=== PATIENT | male | born 1945 | race Caucasian/White ===

== ENCOUNTER 2018-08-28 11:26 | Inpatient (IN) ==
[2018-08-28] MEDS ORDERED: HYDROmorphone 2 MG/1 ML VIAL ONE (12:26)
[2018-08-28] MEDS ORDERED: ONDANSETRON 4 MG/2 ML VIAL ONE (12:26)
[2018-08-28] MEDS ORDERED: HYDROmorphone 2 MG/1 ML VIAL IV STA (12:28)
[2018-08-28] MEDS ORDERED: ONDANSETRON 4 MG/2 ML VIAL IV STA (12:28)
[2018-08-28 12:29] LABS: Basophils % 0.2 % (0.0-0.8); Eosinophils % 0.1 % (0.00-10.9); Hematocrit 38.8 VOL% (42.0-52.0); Hemoglobin 12.9 GM/DL (14.0-18.0); Immature Granulocytes % 0.5 %; Immature Granulocytes Absolute 0.07 #; Lymphocytes # 0.7 10*3/uL (1.4-4.0); Lymphocytes % 4.8 % (21.2-54.2); Mean Corpuscular HGB Conc 33.2 GM/DL (32-36); Mean Corpuscular Hemoglobin 36 PG (27-34); Mean Corpuscular Volume 108.4 FL (87-102); Mean Platelet Volume 9.4 FL (9.6-12.0); Monocytes # 1.1 10*3/uL (0.11-0.8); Monocytes % 7.8 % (1.7-12.7); Neutrophils # 11.6 10*3/uL (1.4-7.4); Neutrophils % 86.6 % (38.7-73.9); Platelet Count 228 T/CUMM (130-400); Red Blood Count 3.58 MC/CUMM (3.8-5.5); White Blood Count 13.5 T/CUMM (4-12)
[2018-08-28] MEDS ORDERED: ONDANSETRON 4 MG/2 ML VIAL IV PRN (12:34)
[2018-08-28] MEDS ORDERED: guaiFENesin/DM ER 600-30 MG TABLET PO PRN (12:34)
[2018-08-28] MEDS ORDERED: ACETAMINOPHEN 325 MG TABLET PO PRN (12:34)
[2018-08-28 12:39] LABS: Apearance,Urine CLOUDY (Clear); Bacteria,Urine Many /HPF (Few); Bilirubin,Urine Negative (Negative); Blood, Urine Small mg/dL (Negative); Glucose,Urine (UA) Negative (Negative); Ketones,Urine 5 mg/dL (Negative); Mucus,Urine Occasional /LPF (Occasional); Nitrite,Urine Negative (Negative); Protein,Urine 100 MG/DL; Urine Color Amber (Yellow); Urine Urobilinogen < 2.0 EU/DL (0.2-1.0); WBC,Urine 565 /HPF (0-6)
[2018-08-28 12:41] LABS: PT Patient Result 10.6 SECS; Partial Thromboplastin Time 24.3 SECS (0-40)
[2018-08-28 12:46] LABS: Albumin 3.7 G/DL (3.4-5.0); Bilirubin,Total 0.8 MG/DL (0.2-1.0); Calcium 8.9 MG/DL (8.5-10.1); Osmolality,Calculated 281.5 MOS/KG (273-304); Potassium 4.2 MMOL/L (3.5-5.1)
[2018-08-28 13:26] LABS: Band Neutrophils 1 % (0-10); Lymphocytes 5 % (20-55); Macrocytosis 1+; Platelet Estimate Normal; Segmented Neutrophils 86 % (50-85); Total Cells Counted 100
[2018-08-28] MEDS ORDERED: SODIUM CHLORIDE 0.9% 1,000 ML IV ONE (14:07)
[2018-08-28] MEDS: PANTOPRAZOLE 40 MG TABLET PO SCH (14:15)
[2018-08-28] MEDS: cefTRIAXone 1,000 MG in SYRINGE 1 EACH IV SCH (14:28)
[2018-08-28] MEDS: SODIUM CHLORIDE 0.9% 1,000 ML IV SCH (15:08)
[2018-08-28] MEDS: ZALEPLON 5 MG CAPSULE PO PRN (20:30)
[2018-08-29] MEDS: diphenhydrAMINE CAP 25 MG CAPSULE PO PRN
[2018-08-29 04:47] LABS: Basophils % 0.3 % (0.0-0.8); Eosinophils % 0.5 % (0.00-10.9); Hematocrit 30.4 VOL% (42.0-52.0); Immature Granulocytes % 0.6 %; Immature Granulocytes Absolute 0.05 #; Lymphocytes # 1.2 10*3/uL (1.4-4.0); Lymphocytes % 15.5 % (21.2-54.2); Mean Corpuscular HGB Conc 32.9 GM/DL (32-36); Mean Corpuscular Hemoglobin 36 PG (27-34); Mean Corpuscular Volume 109.7 FL (87-102); Mean Platelet Volume 9.5 FL (9.6-12.0); Neutrophils # 5.4 10*3/uL (1.4-7.4); Neutrophils % 70.1 % (38.7-73.9); Platelet Count 187 T/CUMM (130-400); Red Cell Distribution Width 13.2 % (9.3-17.3)
[2018-08-29] MEDS: MORPHINE 4 MG/1 ML VIAL IV PRN ×3 (05:01→08:06)
[2018-08-29 05:13] LABS: Calcium 7.7 MG/DL (8.5-10.1); Osmolality,Calculated 286.1 MOS/KG (273-304); Potassium 4.5 MMOL/L (3.5-5.1); Risk Ratio 2.3; Thyroid Stimulating Hormone 1.13 uIU/ml (0.358-3.74); VLDL CHOLESTEROL 15.4 MG/DL
[2018-08-29 05:33] LABS: Red Blood Count 2.77 MC/CUMM (3.8-5.5); White Blood Count 7.7 T/CUMM (4-12)
[2018-08-29] MEDS ORDERED: ceFAZolin 1,000 MG in SYRINGE 1 EACH IV ONE (06:00)
[2018-08-29] MEDS ORDERED: DIAZEPAM 5 MG TABLET ONE (08:23)
[2018-08-29] MEDS ORDERED: PANTOPRAZOLE 40 MG VIAL IV ONE ×2 (08:23→08:30)
[2018-08-29] MEDS ORDERED: DIAZEPAM 5 MG TABLET PO ONE (08:30)
[2018-08-29] MEDS ORDERED: BACITRACIN OINT 0.9 GM PACK TOP ONE (09:08)
[2018-08-29] MEDS: BISACODYL 5 MG TABLET PO SCH (10:11)
[2018-08-29] MEDS: PANTOPRAZOLE 40 MG TABLET PO SCH (10:12)
[2018-08-29] MEDS ORDERED: MAGNESIUM HYDROXIDE SUSP 30 ML UDCUP PO PRN (10:21)
[2018-08-29] MEDS ORDERED: TRANEXAMIC ACID 1,000 MG/10 ML VIAL ONE (10:42)
[2018-08-29] MEDS ORDERED: ROPIVACAINE 0.5% 30 ML VIAL ONE (11:23)
[2018-08-29] MEDS ORDERED: EPINEPHrine 1 MG/ML VIAL ONE (11:27)
[2018-08-29] MEDS ORDERED: BUPIVACAINE 0.5% 50 ML VIAL ONE (11:27)
[2018-08-29 11:34] LABS: Apearance,Urine CLEAR (Clear); Bilirubin,Urine Negative (Negative); Blood, Urine Moderate mg/dL (Negative); Glucose,Urine (UA) Negative (Negative); Ketones,Urine Negative (Negative); Nitrite,Urine Negative (Negative); Protein,Urine Negative; RBC,Urine 5 /HPF (0-4); Squamous Epithelial Cell,Urine Occasional /HPF (0-10); Urine Color Straw (Yellow); Urine Urobilinogen < 2.0 EU/DL (0.2-1.0); WBC,Urine 14 /HPF (0-6)
[2018-08-29] MEDS ORDERED: PHENYLEPHRINE 10 MG/1 ML VIAL IV ONE (11:34)
[2018-08-29] MEDS ORDERED: KETAMINE 500 MG/10 ML VIAL ONE (11:34)
[2018-08-29] MEDS ORDERED: SODIUM CHLORIDE 0.9% 250 ML IV ONE (11:35)
[2018-08-29] MEDS ORDERED: PHENYLEPHRINE 1 MG/10 ML SYRINGE IV ONE (11:35)
[2018-08-29] MEDS ORDERED: ACETAMINOPHEN 1,000 MG/100 ML VIAL IV ONE (11:35)
[2018-08-29] MEDS ORDERED: SODIUM CHLORIDE 0.9% 100 ML IV ONE (11:35)
[2018-08-29] MEDS ORDERED: PROPOFOL 200 MG/20 ML VIAL IV ONE (11:35)
[2018-08-29] MEDS: KETOROLAC 15 MG/1 ML VIAL IV SCH ×3 (12:56→23:01)
[2018-08-29] MEDS ORDERED: SODIUM CHLORIDE 0.9% 1,000 ML IV ONE (12:57)
[2018-08-29] MEDS: LACTATED RINGERS 1,000 ML IV SCH ×2 (12:57→20:35)
[2018-08-29] MEDS: ACETAMINOPHEN 500 MG TABLET PO SCH ×2 (16:01→20:36)
[2018-08-29] MEDS: ceFAZolin 1,000 MG in SYRINGE 1 EACH IV SCH ×2 (16:38→23:02)
[2018-08-29] MEDS: cefTRIAXone 1,000 MG in SYRINGE 1 EACH IV SCH (16:39)
[2018-08-29] MEDS: DOCUSATE SODIUM 100 MG CAPSULE PO SCH (20:39)
[2018-08-29] MEDS: SODIUM CHLORIDE 0.9% 1,000 ML IV SCH ×2 (22:28)
[2018-08-30] MEDS: ACETAMINOPHEN 500 MG TABLET PO SCH ×2 (03:06→09:18)
[2018-08-30] MEDS: KETOROLAC 15 MG/1 ML VIAL IV SCH (04:09)
[2018-08-30] MEDS: FONDAPARINUX 2.5 MG/0.5 ML SYRINGE SUBCUT SCH (04:10)
[2018-08-30 04:56] LABS: Basophils % 0.3 % (0.0-0.8); Eosinophils # 0.1 10*3/uL (0.0-0.87); Eosinophils % 1.4 % (0.00-10.9); Hematocrit 27.9 VOL% (42.0-52.0); Hemoglobin 8.8 GM/DL (14.0-18.0); Immature Granulocytes % 0.4 %; Immature Granulocytes Absolute 0.03 #; Lymphocytes % 13.2 % (21.2-54.2); Mean Corpuscular HGB Conc 31.5 GM/DL (32-36); Mean Corpuscular Hemoglobin 35 PG (27-34); Mean Corpuscular Volume 111.6 FL (87-102); Mean Platelet Volume 9.7 FL (9.6-12.0); Monocytes % 12.1 % (1.7-12.7); Neutrophils # 5.7 10*3/uL (1.4-7.4); Neutrophils % 72.6 % (38.7-73.9); Platelet Count 165 T/CUMM (130-400); Red Cell Distribution Width 13.5 % (9.3-17.3); White Blood Count 7.9 T/CUMM (4-12)
[2018-08-30 05:19] LABS: Calcium 7.8 MG/DL (8.5-10.1); Osmolality,Calculated 287.8 MOS/KG (273-304); Potassium 4.4 MMOL/L (3.5-5.1)
[2018-08-30] MEDS ORDERED: ASPIRIN EC 81 MG TABLET PO SCH (09:00)
[2018-08-30] MEDS: DOCUSATE SODIUM 100 MG CAPSULE PO SCH ×2 (09:18→21:00)
[2018-08-30] MEDS: BISACODYL 5 MG TABLET PO SCH (09:18)
[2018-08-30] MEDS: PANTOPRAZOLE 40 MG TABLET PO SCH (09:18)
[2018-08-30] MEDS: PRAVASTATIN 20 MG TABLET PO SCH (09:19)
[2018-08-30] MEDS ORDERED: MAGNESIUM CITRATE 300 ML BOTTLE PO ONE (15:22)
[2018-08-30] MEDS ORDERED: CELECOXIB 200 MG CAPSULE PO SCH (16:23)
[2018-08-30] MEDS: cefTRIAXone 1,000 MG in SYRINGE 1 EACH IV SCH (18:37)
[2018-08-31] MEDS: FONDAPARINUX 2.5 MG/0.5 ML SYRINGE SUBCUT SCH (05:05)
[2018-08-31 05:28] LABS: Basophils # 0.1 10*3/uL (0.0-0.2); Basophils % 0.7 % (0.0-0.8); Eosinophils # 0.2 10*3/uL (0.0-0.87); Eosinophils % 2.9 % (0.00-10.9); Hematocrit 26.5 VOL% (42.0-52.0); Hemoglobin 8.6 GM/DL (14.0-18.0); Immature Granulocytes % 0.6 %; Immature Granulocytes Absolute 0.04 #; Lymphocytes % 13.6 % (21.2-54.2); Mean Corpuscular HGB Conc 32.5 GM/DL (32-36); Mean Corpuscular Hemoglobin 36 PG (27-34); Mean Corpuscular Volume 111.3 FL (87-102); Mean Platelet Volume 9.8 FL (9.6-12.0); Monocytes # 0.8 10*3/uL (0.11-0.8); Monocytes % 11.1 % (1.7-12.7); Neutrophils % 71.1 % (38.7-73.9); Platelet Count 176 T/CUMM (130-400); Red Blood Count 2.38 MC/CUMM (3.8-5.5); Red Cell Distribution Width 13.3 % (9.3-17.3)
[2018-08-31 05:52] LABS: Calcium 8.4 MG/DL (8.5-10.1); Osmolality,Calculated 290.6 MOS/KG (273-304); Potassium 4.2 MMOL/L (3.5-5.1)
[2018-08-31 06:46] LABS: Macrocytosis 1+; Ovalocytes Slight
[2018-08-31 06:47] LABS: Platelet Estimate Adequate
[2018-08-31] MEDS: PANTOPRAZOLE 40 MG TABLET PO SCH (09:54)
[2018-08-31] MEDS: DOCUSATE SODIUM 100 MG CAPSULE PO SCH ×2 (09:54→22:09)
[2018-08-31] MEDS: PRAVASTATIN 20 MG TABLET PO SCH (09:54)
[2018-08-31] MEDS: BISACODYL 5 MG TABLET PO SCH (09:54)
[2018-08-31] MEDS: cefTRIAXone 1,000 MG in SYRINGE 1 EACH IV SCH (15:27)
[2018-08-31] MEDS: MORPHINE 4 MG/1 ML VIAL IV PRN (17:05)
[2018-09-01] MEDS: MORPHINE 4 MG/1 ML VIAL IV PRN (04:03)
[2018-09-01 05:21] LABS: Basophils % 0.7 % (0.0-0.8); Eosinophils # 0.4 10*3/uL (0.0-0.87); Eosinophils % 6.2 % (0.00-10.9); Hematocrit 27.6 VOL% (42.0-52.0); Hemoglobin 8.7 GM/DL (14.0-18.0); Immature Granulocytes % 0.5 %; Immature Granulocytes Absolute 0.03 #; Lymphocytes # 1.1 10*3/uL (1.4-4.0); Lymphocytes % 18.7 % (21.2-54.2); Mean Corpuscular HGB Conc 31.5 GM/DL (32-36); Mean Corpuscular Hemoglobin 35 PG (27-34); Mean Corpuscular Volume 111.7 FL (87-102); Mean Platelet Volume 9.7 FL (9.6-12.0); Monocytes # 0.6 10*3/uL (0.11-0.8); Monocytes % 10.5 % (1.7-12.7); Neutrophils # 3.8 10*3/uL (1.4-7.4); Neutrophils % 63.4 % (38.7-73.9); Platelet Count 209 T/CUMM (130-400); Red Blood Count 2.47 MC/CUMM (3.8-5.5); Red Cell Distribution Width 13.2 % (9.3-17.3); White Blood Count 5.9 T/CUMM (4-12)
[2018-09-01 05:35] LABS: Calcium 8.3 MG/DL (8.5-10.1); Osmolality,Calculated 286.8 MOS/KG (273-304)
[2018-09-01] MEDS: DOCUSATE SODIUM 100 MG CAPSULE PO SCH ×2 (08:12→21:40)
[2018-09-01] MEDS: FONDAPARINUX 2.5 MG/0.5 ML SYRINGE SUBCUT SCH (08:12)
[2018-09-01] MEDS: BISACODYL 5 MG TABLET PO SCH (08:12)
[2018-09-01] MEDS: PRAVASTATIN 20 MG TABLET PO SCH (08:13)
[2018-09-01] MEDS: PANTOPRAZOLE 40 MG TABLET PO SCH (08:13)
[2018-09-01] MEDS: cefTRIAXone 1,000 MG in SYRINGE 1 EACH IV SCH (16:25)
[2018-09-02] MEDS: diphenhydrAMINE CAP 25 MG CAPSULE PO PRN ×2 (00:15→14:19)
[2018-09-02] MEDS: FONDAPARINUX 2.5 MG/0.5 ML SYRINGE SUBCUT SCH (08:29)
[2018-09-02] MEDS: DOCUSATE SODIUM 100 MG CAPSULE PO SCH ×2 (09:59→21:57)
[2018-09-02] MEDS: FOLIC ACID 1 MG TABLET PO SCH (09:59)
[2018-09-02] MEDS: PANTOPRAZOLE 40 MG TABLET PO SCH (09:59)
[2018-09-02] MEDS: BISACODYL 5 MG TABLET PO SCH (09:59)
[2018-09-02] MEDS: PRAVASTATIN 20 MG TABLET PO SCH (10:24)
[2018-09-02] MEDS: SIMVASTATIN 10 MG TABLET PO SCH (10:39)
[2018-09-02 11:52] LABS: Basophils % 0.5 % (0.0-0.8); Eosinophils # 0.2 10*3/uL (0.0-0.87); Eosinophils % 3.8 % (0.00-10.9); Hematocrit 29.4 VOL% (42.0-52.0); Hemoglobin 9.3 GM/DL (14.0-18.0); Immature Granulocytes % 0.7 %; Immature Granulocytes Absolute 0.04 #; Lymphocytes # 0.9 10*3/uL (1.4-4.0); Lymphocytes % 14.4 % (21.2-54.2); Mean Corpuscular HGB Conc 31.6 GM/DL (32-36); Mean Corpuscular Hemoglobin 35 PG (27-34); Mean Corpuscular Volume 110.5 FL (87-102); Mean Platelet Volume 9.5 FL (9.6-12.0); Monocytes # 0.7 10*3/uL (0.11-0.8); Monocytes % 11.2 % (1.7-12.7); Neutrophils # 4.2 10*3/uL (1.4-7.4); Neutrophils % 69.4 % (38.7-73.9); Platelet Count 238 T/CUMM (130-400); Red Blood Count 2.66 MC/CUMM (3.8-5.5); Red Cell Distribution Width 13.3 % (9.3-17.3)
[2018-09-02 12:16] LABS: Hypochromasia 1+; Ovalocytes Slight; Platelet Estimate Adequate
[2018-09-02] MEDS: cefTRIAXone 1,000 MG in SYRINGE 1 EACH IV SCH (15:29)
[2018-09-03 05:24] LABS: Basophils % 0.6 % (0.0-0.8); Eosinophils # 0.4 10*3/uL (0.0-0.87); Eosinophils % 7.8 % (0.00-10.9); Hematocrit 28.4 VOL% (42.0-52.0); Immature Granulocytes % 0.9 %; Immature Granulocytes Absolute 0.05 #; Lymphocytes % 18.3 % (21.2-54.2); Mean Corpuscular HGB Conc 31.7 GM/DL (32-36); Mean Corpuscular Hemoglobin 35 PG (27-34); Mean Corpuscular Volume 110.5 FL (87-102); Mean Platelet Volume 9.1 FL (9.6-12.0); Monocytes # 0.7 10*3/uL (0.11-0.8); Monocytes % 12.3 % (1.7-12.7); Neutrophils # 3.2 10*3/uL (1.4-7.4); Neutrophils % 60.1 % (38.7-73.9); Platelet Count 251 T/CUMM (130-400); Red Blood Count 2.57 MC/CUMM (3.8-5.5); Red Cell Distribution Width 13.7 % (9.3-17.3); White Blood Count 5.3 T/CUMM (4-12)
[2018-09-03 05:39] LABS: Calcium 8.4 MG/DL (8.5-10.1); Osmolality,Calculated 290.7 MOS/KG (273-304); Potassium 4.1 MMOL/L (3.5-5.1)
[2018-09-03 05:56] LABS: Hypochromasia 1+; Ovalocytes Slight; Platelet Estimate Adequate
[2018-09-03] MEDS: MORPHINE 4 MG/1 ML VIAL IV PRN ×2 (07:34→11:23)
[2018-09-03] MEDS ORDERED: ceFAZolin 1,000 MG VIAL ONE ×2 (09:12→10:02)
[2018-09-03] MEDS ORDERED: LIDOCAINE 1%/EPI INJ 20 ML VIAL ONE (09:13)
[2018-09-03] MEDS: FONDAPARINUX 2.5 MG/0.5 ML SYRINGE SUBCUT SCH (09:51)
[2018-09-03] MEDS: DOCUSATE SODIUM 100 MG CAPSULE PO SCH ×2 (09:52→20:27)
[2018-09-03] MEDS ORDERED: SEVOFLURANE 1 UNIT/15 MINUTE INH ONE (10:57)
[2018-09-03] MEDS ORDERED: ONDANSETRON 4 MG/2 ML VIAL ONE (10:57)
[2018-09-03] MEDS ORDERED: PHENYLEPHRINE 1 MG/10 ML SYRINGE IV ONE (10:57)
[2018-09-03] MEDS ORDERED: KETOROLAC 30 MG/1 ML VIAL ONE (10:57)
[2018-09-03] MEDS ORDERED: fentaNYL 100 MCG/2 ML VIAL ONE (10:57)
[2018-09-03] MEDS ORDERED: PROPOFOL 200 MG/20 ML VIAL IV ONE (10:57)
[2018-09-03] MEDS ORDERED: MORPHINE 10 MG/1 ML VIAL ONE (11:22)
[2018-09-03] MEDS: PANTOPRAZOLE 40 MG TABLET PO SCH (12:02)
[2018-09-03] MEDS: BISACODYL 5 MG TABLET PO SCH (12:02)
[2018-09-03] MEDS: SIMVASTATIN 10 MG TABLET PO SCH (12:02)
[2018-09-03] MEDS: FOLIC ACID 1 MG TABLET PO SCH (12:02)
[2018-09-03] MEDS: diphenhydrAMINE CAP 25 MG CAPSULE PO PRN (12:02)
[2018-09-03] MEDS: cefTRIAXone 1,000 MG in SYRINGE 1 EACH IV SCH (15:15)
[2018-09-03] MEDS: ZALEPLON 5 MG CAPSULE PO PRN (20:28)
[2018-09-04 05:37] LABS: Basophils % 0.5 % (0.0-0.8); Eosinophils # 0.3 10*3/uL (0.0-0.87); Eosinophils % 5.8 % (0.00-10.9); Hematocrit 27.8 VOL% (42.0-52.0); Hemoglobin 8.8 GM/DL (14.0-18.0); Immature Granulocytes % 0.7 %; Immature Granulocytes Absolute 0.04 #; Lymphocytes # 0.9 10*3/uL (1.4-4.0); Lymphocytes % 16.1 % (21.2-54.2); Mean Corpuscular HGB Conc 31.7 GM/DL (32-36); Mean Corpuscular Hemoglobin 36 PG (27-34); Mean Corpuscular Volume 113.5 FL (87-102); Mean Platelet Volume 9.5 FL (9.6-12.0); Monocytes # 0.7 10*3/uL (0.11-0.8); Monocytes % 12.2 % (1.7-12.7); Neutrophils # 3.7 10*3/uL (1.4-7.4); Neutrophils % 64.7 % (38.7-73.9); Platelet Count 273 T/CUMM (130-400); Red Blood Count 2.45 MC/CUMM (3.8-5.5); Red Cell Distribution Width 14.1 % (9.3-17.3); White Blood Count 5.7 T/CUMM (4-12)
[2018-09-04 06:01] LABS: Osmolality,Calculated 293.6 MOS/KG (273-304); Potassium 4.2 MMOL/L (3.5-5.1)
[2018-09-04 06:06] LABS: Hypochromasia 1+; Platelet Estimate Adequate
[2018-09-04] MEDS: FONDAPARINUX 2.5 MG/0.5 ML SYRINGE SUBCUT SCH (08:45)
[2018-09-04] MEDS: FOLIC ACID 1 MG TABLET PO SCH (08:46)
[2018-09-04] MEDS: SIMVASTATIN 10 MG TABLET PO SCH (08:46)
[2018-09-04] MEDS: PANTOPRAZOLE 40 MG TABLET PO SCH (08:46)
[2018-09-04] MEDS: DOCUSATE SODIUM 100 MG CAPSULE PO SCH ×3 (08:46→20:58)
[2018-09-04] MEDS: BISACODYL 5 MG TABLET PO SCH (08:46)
[2018-09-04] MEDS: ZALEPLON 5 MG CAPSULE PO PRN (20:46)
[2018-09-05] MEDS: FOLIC ACID 1 MG TABLET PO SCH (09:15)
[2018-09-05] MEDS: PANTOPRAZOLE 40 MG TABLET PO SCH (09:15)
[2018-09-05] MEDS: DOCUSATE SODIUM 100 MG CAPSULE PO SCH (09:15)
[2018-09-05] MEDS: BISACODYL 5 MG TABLET PO SCH (09:15)
[2018-09-05] MEDS: FONDAPARINUX 2.5 MG/0.5 ML SYRINGE SUBCUT SCH (09:15)
[2018-09-05] MEDS: SIMVASTATIN 10 MG TABLET PO SCH (09:16)
[2018-09-05 11:58] VITALS: BP 117/76
[2018-09-08] MEDS ORDERED: CYANOCOBALAMIN 1000 MCG/1 ML VIAL SUBCUT SCH (09:00)
== END 2018-09-05 12:52 | disposition swing bed (61) | DRG 481 ==
LOC: EDUNIT# → EDBD → N.ED 11:26 → N.EDINP 12:34 → SUATTDRO 12:34 → N.2W 13:10 → N.3E 14:52
PROVIDERS: ADMIT Internal Medicine; ATTEND Internal Medicine